=== PATIENT | female | born 1985 | race American Indian/Alaskan Native ===

== ENCOUNTER 2017-06-16 03:24 | Emergency (ER) | payer OTHER ==
[2017-06-16 04:00] VITALS: BP 130/52
[2017-06-16 06:04] LABS: Bilirubin,Urine NEG (Negative); Blood,Urine NEG (Negative); Ketones,Urine NEG (Negative); Leukocyte Esterase,Urine NEG (Negative); Nitrite,Urine NEG (Negative); Protein,Urine <15 mg/dL mg/dL (Negative); RBC,Urine < 1.0 /HPF (0.0-6.0); Urobilinogen,Urine < 2.0 mg/dL (<2.0)
--- NOTE | 2017-06-16 06:25 | Emergency Department Report ---
ED Rash HPI - HPI Chief Complaint: Skin Rash Stated Complaint: BODY RASH; MISSED MENSES Time Seen by Provider: 06/16/17 06:12 Duration: 2 weeks Location: Lower Extremities Suspected Cause: Unknown Rash Symptoms: Yes Itching, No Facial Swelling, No Tongue/Oral Swelling, No Breathing Difficulties, No Choking Sensation, No Wheezing/Dyspnea, No Peeling, No Blistering, No Fever, No Lightheaded, No Malaise, No Myalgias Severity: mild Other History: This is a 31 y.o. female presents with rash and itching x 2 weeks. She is using cortisone cream and blue star ointment. It disappears and reappears daily. Denies changing soaps and detergents. Denies SOB, difficulty breathing, and chest pain. She is requesting a test because LMP . She took a home test 3 days ago and it was negative. ED Review of Systems ROS: Stated complaint: BODY RASH; MISSED MENSES Other details as noted in HPI Constitutional: no symptoms reported, see HPI. denies: chills, diaphoresis, fever, malaise, weakness Respiratory: no symptoms reported, see HPI. denies: cough, orthopnea, shortness of breath, SOB with exertion, SOB at rest, stridor, wheezing Cardiovascular: as per HPI. denies: chest pain, palpitations, dyspnea on exertion, orthopnea, edema, syncope, paroxysmal nocturnal dyspnea Gastrointestinal: as per HPI. denies: abdominal pain, nausea, vomiting, diarrhea, constipation, hematemesis, melena, hematochezia Genitourinary: as per HPI. denies: urgency, dysuria, frequency, hematuria, discharge, abnormal menses, dyspareunia Skin: as per HPI, rash. denies: lesions, change in color, change in hair/nails , pruritus Psychiatric: as per HPI. denies: anxiety, depression, auditory hallucinations, visual hallucinations, homicidal thoughts, suicidal thoughts ED Past Medical Hx - Past Medical History Previous Medical History?: No - Surgical History Past Surgical History?: Yes Additional Surgical History: breast surgery - Social History Smoking Status: Never Smoker Substance Use Type: Alcohol - Medications Home Medications: Home Medications Medication Instructions Recorded Confirmed Last Taken Type Triamcinolone 0.5% [Kenalog 0.5% 1 applic TP TID #1 tube 06/16/17 Unknown Rx CREAM] Rash Exam - Exam General: Vital signs noted. No distress. Alert and acting appropriately. HEENT: No Periorbital Edema, No Conjuctival Injection, No Chemosis, No Perioral Edema, No Tongue Edema, No Uvular Edema, No Compromised Airway, No Drooling Lungs: Yes Good Air Exchange, No Wheezes, No Ronchi, No Stridor, No Cough, No Labored Respirations, No Retractions, No Use of Accessory Muscles, No Other Abnormal Lung Sounds Heart: Yes Regular, No Murmur Skin: No Urticarial Rash (pt showed picture of urticarial rash 4 days ago on phone, no rash today), No Maculopapular Rash, No Morbilliform rash, No Bulla(e) , No Excoriations, No Weeping, No Tenderness, No Erythema, No Edema, No Encrustations, No Other ED Course Vital Signs 06/16/17 03:57 Temperature 98.1 F Pulse Rate 81 Blood Pressure 130/52 O2 Sat by Pulse 99 Oximetry - Reevaluation(s) Reevaluation #1: 06/16/17 06:28 Pt presented phone with urticarial rash to right buttock and RLE. Today she does not have a rash. Requesting a test. She took a test 3 days ago at home and it was negative. LMP 04/20/2017. UA negative for UTI. Referral to [facility]. She live in [facility]. 06/16/17 06:29 06/16/17 06:30 06/16/17 06:38 Critical care attestation.: If time is entered above; I have spent that time in minutes in the direct care of this critically ill patient, excluding procedure time. ED Disposition Clinical Impression: Allergic dermatitis, Amenorrhea, secondary Disposition: DC-01 TO HOME OR SELFCARE Is pt being admited?: No Does the pt Need Aspirin: No Condition: Stable Instructions: Contact Dermatitis (ED) Additional Instructions: Follow up with [facility] and allergy clinic as discussed. Prescriptions: Triamcinolone 0.5% [Kenalog 0.5% CREAM] 1 applic TP TID #1 tube Referrals: PRIMARY CARE, [Primary Care Provider] - 3-5 Days [facility] [Outside] - 3-5 Days [facility] [Outside] - 3-5 Days Time of Disposition: 06:44 Print Language: URDU
== END 2017-06-16 06:53 | disposition home or self-care (01) ==
LOC: ED 03:24
DX: L23.9 Allergic contact dermatitis, unspecified cause (principal); N91.2 Amenorrhea, unspecified
CPT/HCPCS: 81001; 99283